=== PATIENT | female | born 1955 | race Caucasian/White ===

== ENCOUNTER 2023-07-01 11:22 | Emergency (ER) | payer OTHER, SELFPAY ==
[2023-07-01 11:23] VITALS: BP 139/63; PULSE 76; RESP 14; TEMP 36.8; O2SAT 97; BMI 24.2
[2023-07-01 11:35] LABS: Appearance Urine UA CLOUDY; Bilirubin Urine UA 1+ (NEGATIVE); Color Urine UA YELLOW; Glucose Urine UA NEGATIVE (Negative); Ketones Urine UA NEGATIVE (NEGATIVE); Leukocyte Esterase Urine UA TRACE (NEGATIVE); Nitrite Urine UA NEGATIVE (Negative); Occult Blood Urine UA 3+ (Negative); Protein Urine UA 2+ (Negative); Specific Gravity Urine UA >=1.030 (1.000-1.035)
--- NOTE | 2023-07-01 11:35 | ED_ITS ---
HPI - Female Genitourinary <Krissy Crisostomo PA-C - Last Filed: 07/01/23 12:06> General Chief complaint: Urogenital-Female Stated complaint: urination of blood Time Seen by Provider: 07/01/23 11:29 Source: patient Mode of arrival: Ambulatory History of Present Illness HPI Narrative: Patient is a 67-year-old female who presents with blood in her urine. Reports a recent history of a kidney stone that was diagnosed in [place], reports she underwent a procedure to break up the stone. Over the past 3-4 months she is been having intermittent blood in her urine but it goes away when she drinks a lot of water. She presents today because she feels like the urine looks more brown then red, she has minimal pain today but does endorse suprapubic bloating and discomfort. She denies fever or chills, dysuria, burning, flank pain. She endorses frequency yesterday. She reports previous hysterectomy and removal of 1 ovary. Related Data Previous Rx's Medication Instructions Recorded sulfamethoxazole 800 1 tab PO BID #6 tabs 07/01/23 mg-trimethoprim 160 mg tablet (Bactrim DS) Allergies Allergy/AdvReac Type Severity Reaction Status Date / Time meperidine [From Demerol] Allergy Verified 07/01/23 11:31 Review of Systems <Krissy Crisostomo PA-C - Last Filed: 07/01/23 12:06> Review of Systems ROS Unobtainable: All systems reviewed & are unremarkable except as noted in HPI and below Patient History <ANAI Moore Last Filed: 07/01/23 12:06> alcohol intake frequency: holidays/special occasions only Substance Use Type: marijuana Exam <Krissy Crisostomo PA-C - Last Filed: 07/01/23 12:06> Narrative Exam Narrative: GENERAL: 67 old patient appears stated age. Well-developed patient, in no distress. NEURO: AOx3. CARDIOVASCULAR: Regular rate and rhythm without murmurs, gallops, or rubs. RESPIRATORY: Clear to auscultation. Breath sounds equal bilaterally. No wheezes, rales, or rhonchi. GASTROINTESTINAL: Abdomen soft, mild suprapubic tenderness to palpation. No CVA tenderness. EXTREMITIES: No edema or joint tenderness. BACK: Nontender without deformity or crepitance. No flank tenderness. SKIN: No rash or erythema of visible areas Initial Vital Signs Initial Vital Signs: Vital Signs Temperature 98.2 F 07/01/23 11:23 Pulse Rate 76 07/01/23 11:23 Respiratory Rate 14 07/01/23 11:23 Blood Pressure 139/63 07/01/23 11:23 Pulse Oximetry 97 07/01/23 11:23 Oxygen Delivery Method Room Air 07/01/23 11:23 <Timur Johnson DO - Last Filed: 07/01/23 13:24> Initial Vital Signs Initial Vital Signs: Vital Signs Temperature 98.2 F 07/01/23 11:23 Pulse Rate 76 07/01/23 11:23 Respiratory Rate 14 07/01/23 11:23 Blood Pressure 139/63 07/01/23 11:23 Pulse Oximetry 97 07/01/23 11:23 Oxygen Delivery Method Room Air 07/01/23 11:23 Course <Krissy Crisostomo PA-C - Last Filed: 07/01/23 12:06> Orders Ordered: ED Orders 07/01/23 11:25 Ictotest Urine Stat Urinalysis and Microscopic Stat Urine Culture Stat Vital Signs Vital signs: Vital Signs - 8 hr 07/01/23 11:23 Temperature 98.2 F Pulse Rate 76 Respiratory Rate 14 Blood Pressure 139/63 Pulse Oximetry 97 Oxygen Delivery Method Room Air <Timur Johnson DO - Last Filed: 07/01/23 13:24> Orders Ordered: ED Orders 07/01/23 11:25 Ictotest Urine Stat Urinalysis and Microscopic Stat Urine Culture Stat Vital Signs Vital signs: Vital Signs - 8 hr 07/01/23 11:23 Temperature 98.2 F Pulse Rate 76 Respiratory Rate 14 Blood Pressure 139/63 Pulse Oximetry 97 Oxygen Delivery Method Room Air MDM - Female Genitourinary <ANAI Moore Last Filed: 07/01/23 12:06> Lab Data Attestation: I reviewed the patient's lab results. Labs: Lab Results 07/01/23 Range/Units 11:25 Urine Color Yellow Urine Appearance Cloudy Urine pH 5.5 (4.5-8.0) Ur Specific Monarch >=1.030 H (1.000-1.035) Urine Protein 2+ H (Negative) Urine Glucose (UA) Negative (Negative) g/dL Urine Ketones Negative (NEGATIVE) Urine Occult Blood 3+ H (Negative) Urine Nitrate Negative (Negative) Urine Bilirubin 1+ H (NEGATIVE) Ur Bilirubin Confirm Negative (Negative) Urine Urobilinogen 1.0 (0.2) E.U./dL Ur Leukocyte Esterase Trace H (NEGATIVE) Urine RBC >100/hpf H (0-5/HPF) Urine WBC 10-30/hpf H (0-5/HPF) Ur Squamous Epith Cells None seen (0-5/HPF) Calcium Oxalate Crystal Moderate H Amorphous Sediment 2+ Urine Bacteria Few (2-10) H (None) Ur Culture Indicated? Specimen cultured MDM Narrative Medical decision making narrative: Multiple etiologies for patient's symptoms considered including, but not limited to: Acute cystitis, pyelonephritis, nephrolithiasis, malignancy Prior Charts reviewed: none available Labs reviewed and interpreted by myself: Urinalysis consistent with acute cystitis with + red blood cells, +white blood cells. Given laboratory findings, suspect acute cystitis, doubt kidney stone given minimal pain, doubt pyelonephritis given no CVA tenderness and no systemic symptoms. Will treat with PO antibiotics, advised good hydration, strongly encouraged to follow up with primary care if hematuria persists after completion of antibiotic course as she would require further workup. Patient's symptoms improved over duration of stay with above-stated therapies. Findings and discharge diagnosis discussed with patient/family followed by verbalization of understanding Return precautions discussed with patient/family whom verbalize understanding of diagnosis and plan <Timur Johnson DO - Last Filed: 07/01/23 13:24> Lab Data Labs: Lab Results 07/01/23 Range/Units 11:25 Urine Color Yellow Urine Appearance Cloudy Urine pH 5.5 (4.5-8.0) Ur Specific Monarch >=1.030 H (1.000-1.035) Urine Protein 2+ H (Negative) Urine Glucose (UA) Negative (Negative) g/dL Urine Ketones Negative (NEGATIVE) Urine Occult Blood 3+ H (Negative) Urine Nitrate Negative (Negative) Urine Bilirubin 1+ H (NEGATIVE) Ur Bilirubin Confirm Negative (Negative) Urine Urobilinogen 1.0 (0.2) E.U./dL Ur Leukocyte Esterase Trace H (NEGATIVE) Urine RBC >100/hpf H (0-5/HPF) Urine WBC 10-30/hpf H (0-5/HPF) Ur Squamous Epith Cells None seen (0-5/HPF) Calcium Oxalate Crystal Moderate H Amorphous Sediment 2+ Urine Bacteria Few (2-10) H (None) Ur Culture Indicated? Specimen cultured Discharge Plan Departure Patient Disposition: Home Clinical Impression: Urinary tract infection Instructions: DI for Urinary Tract Infection (UTI) Activity Restrictions/Additional Instructions: *You have been diagnosed with urinary tract infection. *What to do: *Please continue to take your regular medications as directed. [ x] New medication prescriptions sent to your pharmacy: [[facility]] [ ] New medication written as a paper prescription [ ] No new medications given *Please follow up with your primary care provider if blood in urine persists after antibiotics are completed. You may need referral to a urologist for cystoscopy to check the inside of your bladder. *If you do not have a primary care provider please contact the [facility] Resource line at [phone]. They will ask some questions about your medical history and help get you set up with a doctor in the community. *Return to Emergency Department if you should have any new, worsening or concerning symptoms, such as [fever greater than 101 F, shaking chills, worsening pain, persistent vomiting or other bothersome symptoms] Prescriptions: New sulfamethoxazole-trimethoprim [Bactrim DS] 800-160 mg tablet 1 tab PO BID Qty: 6 0RF Referrals: Miscellaneous,Doctor, [Primary Care Provider] - Stand Alone Forms: Patient Portal/API <Timur Johnson, DO - Last Filed: 07/01/23 13:24> Cosign ED Attending Cosignature Attestation: Dr Johnson Co-Sign Statement: I was available for consultation during this patient's emergency department visit. This chart is signed by myself for administrative purposes only. I did not have direct contact with this patient during this visit. They were seen independently by the APC.
[2023-07-01 11:38] LABS: pH Urine UA 5.5 (4.5-8.0)
[2023-07-01 11:43] LABS: Amorphous Sediment Urine 2+; Bacteria Urine Few (2-10); Calcium Oxalate Crystals Urine Moderate; Culture Indicated Urine Specimen Cultured; RBC Urine >100/HPF (0-5/HPF); Squamous Epithelial Cell Urine None Seen (0-5/HPF); WBC Urine 10-30/HPF (0-5/HPF)
[2023-07-01 11:44] LABS: Ictotest Urine Negative (Negative)
== END 2023-07-01 12:15 | disposition home or self-care (01) ==
PROVIDERS: Emergency Medicine; Emergency Provider Physician Assistant
DX: N39.0 Urinary tract infection, site not specified (principal)
CPT/HCPCS: 81001; 87086; 87147; 99281; 99283